=== PATIENT | female | born 1980 | race Caucasian/White ===

== ENCOUNTER 2019-01-16 13:40 | Emergency (ER) | payer OTHER ==
[2019-01-16] MEDS ORDERED: IBUPROFEN 200 MG TAB PO ONE ×2 (14:41→14:51)
[2019-01-16] MEDS ORDERED: HYDROCODONE/APAP 5/325 MG TAB ONE (14:41)
[2019-01-16] MEDS ORDERED: TETANUS & DIPHTHERIA TOX,ADULT 0.5 ML VIAL ONE (14:41)
[2019-01-16] MEDS ORDERED: SILVER SULFADIAZINE 1% 25 GM TOP ONE (14:42)
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
== END 2019-01-16 15:46 | disposition home or self-care (01) ==
LOC: ER 13:40
DX: T24.212A Burn of second degree of left thigh, initial encounter (principal); T24.211A Burn of second degree of right thigh, initial encounter; T31.0 Burns involving less than 10% of body surface; X15.8XXA Contact with other hot household appliances, initial encounter; Y93.89 Activity, other specified; Y92.9 Unspecified place or not applicable; Z23 Encounter for immunization; Z88.5 Allergy status to narcotic agent; F17.210 Nicotine dependence, cigarettes, uncomplicated
CPT/HCPCS: 90471; 90714; 99283